=== PATIENT | male | born 1990 | race Caucasian/White ===

== ENCOUNTER 2017-06-22 02:33 | Emergency (ER) | payer MEDICAID ==
[~2017-06-22] VITALS: Ht 167.6 cm; Wt 95.3 kg
[2017-06-22] MEDS ORDERED: OMEP40CA37 PO (02:55)
[2017-06-22] MEDS ORDERED: HYDROCODONE/APAP 10-325 MG TABLET PO ONE (03:00)
[2017-06-22] MEDS ORDERED: HYDROCODONE/APAP 10-325 MG TABLET ONE (03:17)
--- NOTE | 2017-06-22 03:18 | NUR ---
[employer] in EDM - 06/22/17 at 0319 by LINCOLN Patient discharged to home in stable conditon. Written and verbal after care instructions given. Patient verbalizes understanding of instructions.
--- NOTE | 2017-06-22 03:19 | NUR ---
Patient given written and verbal discharge instructions. Patient verbalizes understanding of instructions. Patient is ambulatory with steady gait. Refuses offer of [facility] placement. Patient given list of available shelters in surrounding area.
== END 2017-06-22 03:19 | disposition home or self-care (01) ==
LOC: ER 02:40
DX: M72.2 Plantar fascial fibromatosis (principal); K21.9 Gastro-esophageal reflux disease without esophagitis; Z88.0 Allergy status to penicillin; Z59.0 Homelessness; Z88.8 Allergy status to other drugs, medicaments and biological substances; Z87.442 Personal history of urinary calculi
CPT/HCPCS: 73630; A4663

== ENCOUNTER 2018-03-02 16:57 | Emergency (ER) | payer MEDICAID, OTHER ==
[~2018-03-02] VITALS: Ht 167.6 cm; Wt 90.7 kg
[~2018-03-02 16:57] MED LIST: OMEP40CA37 PO
== END 2018-03-02 17:18 | disposition home or self-care (01) ==
LOC: ER 16:58
DX: Z76.0 Encounter for issue of repeat prescription (principal); K21.9 Gastro-esophageal reflux disease without esophagitis; F31.9 Bipolar disorder, unspecified; F32.9 Major depressive disorder, single episode, unspecified; Z88.0 Allergy status to penicillin; Z88.8 Allergy status to other drugs, medicaments and biological substances; Z91.040 Latex allergy status; Z59.0 Homelessness; Z79.899 Other long term (current) drug therapy
CPT/HCPCS: 99283; A4663

== ENCOUNTER 2018-03-14 14:02 | Emergency (ER) | payer OTHER ==
[~2018-03-14] VITALS: Ht 170.2 cm; Wt 104.3 kg
--- NOTE | 2018-03-14 14:25 | NUR ---
Patient discharged to home in stable conditon. Written and verbal after care instructions given. Patient verbalizes understanding of instructions.
[2018-03-14] MEDS ORDERED: SULFAMETH/TRIMETH 800/160 MG TABLET ONE (14:28)
[2018-03-14] MEDS ORDERED: SULFAMETH/TRIMETH 800/160 MG TABLET PO ONE (14:30)
== END 2018-03-14 14:28 | disposition home or self-care (01) ==
LOC: ER 14:04
DX: T63.301A Toxic effect of unspecified spider venom, accidental (unintentional), initial encounter (principal); K21.9 Gastro-esophageal reflux disease without esophagitis; F17.200 Nicotine dependence, unspecified, uncomplicated; Z88.0 Allergy status to penicillin; Z88.8 Allergy status to other drugs, medicaments and biological substances; Z91.040 Latex allergy status; Z59.0 Homelessness; Y92.89 Other specified places as the place of occurrence of the external cause
CPT/HCPCS: A4663

== ENCOUNTER 2018-03-28 17:21 | Emergency (ER) | payer OTHER ==
[~2018-03-28] VITALS: Ht 167.6 cm; Wt 93.4 kg
[2018-03-28 18:02] VITALS: BP 131/68
--- NOTE | 2018-03-28 18:02 | NUR ---
Patient discharged to home in stable conditon. Written and verbal after care instructions given. Patient verbalizes understanding of instructions.
== END 2018-03-28 18:03 | disposition home or self-care (01) ==
LOC: ER 17:23
DX: G89.29 Other chronic pain (principal); M54.9 Dorsalgia, unspecified; Z76.0 Encounter for issue of repeat prescription; K21.9 Gastro-esophageal reflux disease without esophagitis; F17.200 Nicotine dependence, unspecified, uncomplicated; Z88.0 Allergy status to penicillin; Z88.8 Allergy status to other drugs, medicaments and biological substances; Z91.040 Latex allergy status; Z91.048 Other nonmedicinal substance allergy status; Z59.0 Homelessness
CPT/HCPCS: 99283; A4663

== ENCOUNTER 2018-07-10 19:04 | Emergency (ER) | payer OTHER ==
[~2018-07-10] VITALS: Ht 167.6 cm; Wt 95.3 kg
--- NOTE | 2018-07-10 19:26 | NUR ---
Patient discharged to home in stable conditon. Written and verbal after care instructions given. Patient verbalizes understanding of instructions.
== END 2018-07-10 19:27 | disposition home or self-care (01) ==
LOC: ER 19:05
DX: K21.9 Gastro-esophageal reflux disease without esophagitis (principal); Z76.0 Encounter for issue of repeat prescription; F17.200 Nicotine dependence, unspecified, uncomplicated; Z88.0 Allergy status to penicillin; Z91.040 Latex allergy status; Z88.8 Allergy status to other drugs, medicaments and biological substances
CPT/HCPCS: A4663

== ENCOUNTER 2018-11-26 14:06 | Emergency (ER) | payer OTHER ==
[~2018-11-26] VITALS: Ht 167.6 cm; Wt 98.4 kg
--- NOTE | 2018-11-26 14:44 | NUR ---
pt is in room #2b. dr moore evaluated the pt.
[2018-11-26] MEDS ORDERED: DEXAMETHASONE SOD PHOSPHATE 10 MG INJ ONE (14:53)
--- NOTE | 2018-11-26 14:56 | NUR ---
PT WAS D/C'd TO HOME. D/C INSTRUCTIONS GIVEN TO THE PT.
[2018-11-26 14:57] VITALS: BP 139/87
[2018-11-26] MEDS ORDERED: DEXAMETHASONE SOD PHOSPHATE 4 MG INJ IM ONE (15:00)
== END 2018-11-26 14:59 | disposition home or self-care (01) ==
LOC: ER 14:07
DX: M54.12 Radiculopathy, cervical region (principal); K21.9 Gastro-esophageal reflux disease without esophagitis; F17.200 Nicotine dependence, unspecified, uncomplicated; Z90.49 Acquired absence of other specified parts of digestive tract; Z90.89 Acquired absence of other organs; Z88.0 Allergy status to penicillin; Z88.8 Allergy status to other drugs, medicaments and biological substances; Z91.040 Latex allergy status; Z79.899 Other long term (current) drug therapy
CPT/HCPCS: 96372; 99283; J1100; A4663

== ENCOUNTER 2019-06-14 15:16 | Emergency (ER) | payer OTHER ==
[~2019-06-14] VITALS: Ht 167.6 cm; Wt 112.5 kg
--- NOTE | 2019-06-14 17:04 | NUR ---
Patient discharged to home in stable conditon. Written and verbal after care instructions given. Patient verbalizes understanding of instructions.
== END 2019-06-14 17:04 | disposition home or self-care (01) ==
LOC: ER 15:17
DX: K21.9 Gastro-esophageal reflux disease without esophagitis (principal); F31.9 Bipolar disorder, unspecified; F20.9 Schizophrenia, unspecified; F17.200 Nicotine dependence, unspecified, uncomplicated; Z76.0 Encounter for issue of repeat prescription; Z90.49 Acquired absence of other specified parts of digestive tract; Z79.899 Other long term (current) drug therapy
CPT/HCPCS: A4663

== ENCOUNTER 2019-08-10 15:06 | Emergency (ER) | END 2019-08-10 15:47 | disposition home or self-care (01) | DX: K29.70 Gastritis, unspecified, without bleeding (principal); K21.9 Gastro-esophageal reflux disease without esophagitis; F31.9 Bipolar disorder, unspecified; F17.200 Nicotine dependence, unspecified, uncomplicated; Z76.0 Encounter for issue of repeat prescription; Z90.49 Acquired absence of other specified parts of digestive tract; Z88.0 Allergy status to penicillin; Z88.8 Allergy status to other drugs, medicaments and biological substances; Z91.040 Latex allergy status; Z91.048 Other nonmedicinal substance allergy status; Z79.899 Other long term (current) drug therapy ==

== ENCOUNTER 2019-10-19 18:55 | Emergency (ER) | payer OTHER ==
[~2019-10-19] VITALS: Ht 170.2 cm; Wt 106.6 kg
[~2019-10-19 18:55] MED LIST changes: +OMEP40CA13 PO; -OMEP40CA37 PO
--- NOTE | 2019-10-19 19:33 | NUR ---
pt walked into ER w/steady gait in stable condition c/o acid reflux past 2 weeks.Pt is requesting a med refil for omeprazole.Pt A/O X 4 , speeks in complete sentences , no neuro deficit noted. No cardio symptoms noted. Respiratory is even and unlabored,no SOB. Denies any symptoms or complications. Complains of nausea w/o vomiting.
--- NOTE | 2019-10-19 20:10 | NUR ---
PT BECAME AGITATED AND AGGRESSIVE , SECURITY IN HALLWAY THE PATIENT BECAME AGRESSIVE AND ATTEMPTED TO APPROACH THE ER PHYSICIAN. DESPITE MULTIPLE REQUESTS FOR PT TO RETURN TO THE ROOM , PT CONTINUED TO ESCALATE AND ATTEMPTED TO PHOTOGRAPH THE PHYSICIAN . SECURITY PROVIDED INFO TO PT REGARDING NO PHOTOGRAPHY AND/OR VIDEO RECORDING IN THE ER.THE PT DEMANDED THE NAME OF THE PHYSICIAN IN A THREATHENING MANNER. THE ER PHYSICIAN RELUCTANTLY AGREED TO PROVIDE THE PT W HIS PRESCRIPTION IN ORDER TO MAINTAIN A SAFE ENVIRONMENT IN THE ER. THE PT AGREED TO DEESCALATE AND RETURNED TO HIS ROOM TO AWAIT DC DOCUMENTATION.THE PT ALSO AGREED TO FOLLOW UP W HIS GI DOC AFTER DC.
[2019-10-19 20:26] VITALS: BP 123/77
--- NOTE | 2019-10-19 20:26 | NUR ---
Patient discharged to home in stable conditon. Written and verbal after care instructions given. Patient verbalizes understanding of instructions. Ambulated from ER with stable gait. All belongings with patient. VSS
== END 2019-10-19 20:27 | disposition home or self-care (01) ==
LOC: ER 18:55
DX: Z76.0 Encounter for issue of repeat prescription (principal); F17.200 Nicotine dependence, unspecified, uncomplicated; F31.9 Bipolar disorder, unspecified; Z60.2 Problems related to living alone; Z91.040 Latex allergy status; Z90.49 Acquired absence of other specified parts of digestive tract; Z88.0 Allergy status to penicillin; Z88.8 Allergy status to other drugs, medicaments and biological substances
CPT/HCPCS: A4663

== ENCOUNTER 2020-04-24 18:31 | Emergency (ER) | payer OTHER ==
[~2020-04-24] VITALS: Ht 167.6 cm; Wt 98.0 kg
[2020-04-24] MEDS ORDERED: PANTOPRAZOLE SODIUM 40 MG TABLET.DR PO ONE ×2 (19:00→19:04)
--- NOTE | 2020-04-24 19:02 | NUR ---
Patient discharged to home in stable condition & brisk steady gait. Written and verbal after care instructions given to patient. Patient verbalizes understanding of instructions. Stressed follow up or return to ER for worsening s/s.
== END 2020-04-24 19:06 | disposition home or self-care (01) ==
LOC: ER 18:31
DX: J04.0 Acute laryngitis (principal); K21.9 Gastro-esophageal reflux disease without esophagitis; F17.200 Nicotine dependence, unspecified, uncomplicated; Z90.49 Acquired absence of other specified parts of digestive tract; Z87.442 Personal history of urinary calculi; Z86.73 Personal history of transient ischemic attack (TIA), and cerebral infarction without residual deficits; Z91.5 Personal history of self-harm; F31.9 Bipolar disorder, unspecified; Z79.899 Other long term (current) drug therapy
CPT/HCPCS: A4663

== ENCOUNTER 2020-10-26 00:07 | Emergency (ER) | payer OTHER ==
[~2020-10-26] VITALS: Ht 167.6 cm; Wt 105.7 kg
--- NOTE | 2020-10-26 00:29 | NUR ---
:MARGARITA AT B/S AND EXAMINED PATIENT .
[2020-10-26] MEDS ORDERED: LORATADINE 10 MG TABLET PO SCH (00:30)
[2020-10-26] MEDS ORDERED: DIPH25CA83 PO (00:30)
--- NOTE | 2020-10-26 00:42 | NUR ---
GIVEN PO CLARITIN 10 MG TOLERATED WITH WATER .
[2020-10-26] MEDS ORDERED: LORATADINE 10 MG TABLET ONE (00:43)
--- NOTE | 2020-10-26 00:51 | NUR ---
Patient discharged to home in stable condition. Written and verbal after care instructions given. Patient verbalizes understanding of instructions. Stressed follow up or return to ER for worsening s/s. PATIENT AMBULATE WITH STEADY GAIT ,V/S STABLE AND NO SIGNS OF DISTRESS .RECIEVED RX .WENT HOME WITH ALL PERSONNAL BELONGINGS .
[2020-10-26 00:53] VITALS: BP 145/80
== END 2020-10-26 00:55 | disposition home or self-care (01) ==
LOC: ER 00:09
DX: L50.0 Allergic urticaria (principal); T78.49XA Other allergy, initial encounter; F17.210 Nicotine dependence, cigarettes, uncomplicated; Z88.0 Allergy status to penicillin; Z88.8 Allergy status to other drugs, medicaments and biological substances; Z91.040 Latex allergy status; J45.909 Unspecified asthma, uncomplicated; F31.9 Bipolar disorder, unspecified; F20.9 Schizophrenia, unspecified; Z87.820 Personal history of traumatic brain injury; Z91.5 Personal history of self-harm; Z90.49 Acquired absence of other specified parts of digestive tract; Z79.899 Other long term (current) drug therapy
CPT/HCPCS: A4663

== ENCOUNTER 2024-07-06 12:57 | Emergency (ER) | payer OTHER ==
[~2024-07-06] VITALS: Ht 167.6 cm; Wt 96.2 kg
[~2024-07-06 12:57] MED LIST changes: +DIPH25CA83 PO; -OMEP40CA13 PO; +OMEP40CA21 PO
[2024-07-06] MEDS ORDERED: HYDROMORPHONE 2 MG/1 ML DISP.SYRIN ONE ×4 (14:36→18:10)
[2024-07-06] MEDS: HYDROMORPHONE 1 MG/1 ML DISP.SYRIN IV ONE ×4 (14:42→18:11)
[2024-07-06 14:48] LABS: BASOPHILS # (AUTO) 0.1 K/UL (0.0-0.2); BASOPHILS % (AUTO) 0.6 % (0.0-2.0); EOSINOPHILS # (AUTO) 0.4 K/uL (0.0-0.7); EOSINOPHILS % (AUTO) 2.7 % (0.0-7.0); HEMATOCRIT 46.9 % (36.7-47.1); HEMOGLOBIN 15.8 g/dL (12.5-16.3); LYMPHOCYTES # (AUTO) 4.1 K/uL (0.8-4.8); MEAN CORPUSCULAR HEMOGLOBIN 29.9 uug (23.8-33.4); MEAN CORPUSCULAR HGB CONC 34 g/dL (32.5-36.3); MEAN CORPUSCULAR VOLUME 88.8 fL (73.0-96.2); MONOCYTES # (AUTO) 0.8 K/uL (0.1-1.30); MONOCYTES % (AUTO) 5.7 % (0.0-11.0); NEUTROPHILS # (AUTO) 9.2 K/uL (1.8-8.9); PLATELET COUNT (AUTO) 193 K/uL (152-348); RED BLOOD CELL COUNT(AUTO) 5.29 MIL/uL (4.06-5.63); RED CELL DISTRIBUTION WIDTH 13.7 % (12.1-16.2); WHITE BLOOD COUNT (AUTO) 14.6 K/uL (3.6-10.2)
[2024-07-06 14:50] LABS: DIFFERENTIAL COMMENT 1
[2024-07-06 14:54] LABS: MAGNESIUM 2.2 mg/dL (1.8-2.4); POTASSIUM 3.7 mmol/L (3.5-5.1)
[2024-07-06] MEDS ORDERED: IOHEXOL 300MG/ML 100 ML INFUS..BTL ONE (16:03)
[2024-07-06] MEDS ORDERED: SWABABLE VALVE TRANSFER SET EA MC ONE (16:03)
[2024-07-06] MEDS ORDERED: IV NORMAL SALINE 250 ML IV ONE (16:04)
[2024-07-06] MEDS ORDERED: KETOROLAC TROMETHAMINE 30 MG INJ ONE (18:10)
[2024-07-06] MEDS: KETOROLAC TROMETHAMINE 30 MG INJ IVP ONE (18:11)
[2024-07-06] MEDS ORDERED: METR500T PO (18:38)
[2024-07-06] MEDS ORDERED: HYDR-3980 PO (18:38)
[2024-07-06] MEDS ORDERED: CIPR500T5 PO (18:38)
[2024-07-06 18:45] VITALS: O2SAT 98
== END 2024-07-06 18:48 | disposition home or self-care (01) ==
LOC: ER 12:57
DX: S39.011A Strain of muscle, fascia and tendon of abdomen, initial encounter (principal); K61.0 Anal abscess; F17.200 Nicotine dependence, unspecified, uncomplicated; F31.9 Bipolar disorder, unspecified; J45.909 Unspecified asthma, uncomplicated; K21.9 Gastro-esophageal reflux disease without esophagitis; Z88.0 Allergy status to penicillin; Z90.49 Acquired absence of other specified parts of digestive tract; Z90.89 Acquired absence of other organs; Z91.040 Latex allergy status; Z91.51 Personal history of suicidal behavior; Y93.B9 Activity, other involving muscle strengthening exercises; Y92.89 Other specified places as the place of occurrence of the external cause; Y99.8 Other external cause status
CPT/HCPCS: 99285; 74177; 96374; 96375; 80048; 83735; 85025; 36415; 96376; J1885; Q9967; J1171 ×4; A4606; A4663